=== PATIENT | male | born 1980 | race Hispanic/Latino ===

== ENCOUNTER 2020-04-02 13:50 | Outpatient (CLI) | payer BC ==
--- NOTE | 2020-04-02 15:11 | Cat Scan Report ---
CT abdomen pelvis wo con INDICATION: Incisional hernia. TECHNIQUE: All CT scans at this location are performed using the following dose modulation technique: Automated exposure control. CONTRAST: None. COMPARISON: None available. CT ABDOMEN: The parenchymal organs are unremarkable in appearance other than a 2 mm nonobstructing le ft renal stone. Negative for abdominal mass, fluid or inflammation. The bowel is not dilated or thick ened. A fat-containing ventral hernia lies to the left of midline just above the umbilicus. No associated i nflammation is present. Underlying eventration is seen at the anterior abdominal wall. CT PELVIS: Negative for pelvic mass, fluid or inflammation. IMPRESSION: 1. Fat-containing ventral hernia just to the left of midline above the umbilicus. 2. 2 mm nonobstructing left renal stone. Signer Name: Giovany Lawson MD Signed: 04/02/2020 3:06 PM Workstation Name: [id number]
== END 2020-04-02 13:51 | disposition home or self-care (01) ==
LOC: CT 13:50
PROVIDERS: ATTEND Surgery
DX: N20.0 Calculus of kidney (principal); K43.9 Ventral hernia without obstruction or gangrene; K43.2 Incisional hernia without obstruction or gangrene
CPT/HCPCS: 74176

== ENCOUNTER 2020-04-29 10:19 | Day surgery (SDC) | payer BC ==
[~2020-04-29 10:19] MED LIST: CELECOXIB 200 MG CAP PO NR; GABAPENTIN 300 MG CAP PO NR; LACTATED RINGERS 1,000 ML IV SCH; MAGNESIUM OXIDE 400 MG TAB PO SCH; MIDAZOLAM 2 MG/2 ML INJ IV NR; SCOPOLAMINE TRANSDERMAL PATCH 72 HR TD NR; fentaNYL 100 MCG/2 ML INJ IV PRN
[2020-04-29] MEDS ORDERED: LIDOCAINE (1%) 10 MG/1 ML VIAL 20 ML MDV ONE (10:47)
[2020-04-29] MEDS ORDERED: BUPIVACAINE/PF (0.5%) 5 MG/1 ML 30 ML VIAL INFILTRATI ONE (10:47)
[2020-04-29] MEDS ORDERED: ceFAZolin/Water 2 GM/20 ML 2 GM/20 ML SYRINGE IV SCH (11:00)
[2020-04-29] MEDS ORDERED: dexAMETHasone 4 MG/ML VIAL ONE (11:10)
[2020-04-29] MEDS ORDERED: BUPIVACAINE-EPINEPHRINE/PF 0.25%-1:200,000 (10 ML) VIAL INFILTRATI ONE (11:11)
--- NOTE | 2020-04-29 11:18 | Anesthesia Day of Surgery ---
Anesthesia Day of Surgery - Day of Surgery Patient Examined: Yes Patient H&P Reviewed: Yes Patient is NPO: Yes
--- NOTE | 2020-04-29 11:18 | Anesthesia Consultation ---
Anesthesia Consult and Med Hx Date of service: 04/29/20 - Airway Anesthetic Teeth Evaluation: Good ROM Head & Neck: Adequate Mental/Hyoid Distance: Adequate Mallampati Class: Class III Intubation Access Assessment: Possibly Difficult - Pulmonary Exam CTA: Yes - Cardiac Exam Cardiac Exam: RRR - Pre-Operative Health Status ASA Pre-Surgery Classification: ASA2 Proposed Anesthetic Plan: General Nerve Block: TAP - Pulmonary Hx Smoking: No (former smoker 1PPD, quit 1.5yrs ago) Hx Respiratory Symptoms: No Hx Sleep Apnea: No (DANNA PRE SCREEN LOW RISK) - Cardiovascular System Hx Hypertension: No Hx Heart Attack/AMI: No Hx Percutaneous Transluminal Coronary Angioplasty (PTCA): No Hx Cardia Arrhythmia: No - Central Nervous System CVA: No Hx Psychiatric Problems: Yes - Gastrointestinal Hx Gastroesophageal Reflux Disease: No - Endocrine Hx Renal Disease: No Hx Liver Disease: No Hx Insulin Dependent Diabetes: No Hx Non-Insulin Dependent Diabetes: No Hx Thyroid Disease: No - Other Systems Hx Obesity: No - Additional Comments Anesthesia Medical History Comments: No hx anesthetic complications. Outpatient COVID test 04/25/20 negative. Results on chart.
[2020-04-29] MEDS ORDERED: fentaNYL 100 MCG/2 ML INJ ONE (11:58)
[2020-04-29] MEDS ORDERED: propofoL 200 MG/20 ML VIAL IV ONE (11:58)
[2020-04-29] MEDS ORDERED: ROCURONIUM 50 MG/5 ML INJ IV ONE (11:58)
[2020-04-29] MEDS ORDERED: PHENYLEPHRINE/NS 1,000 MCG/10 ML SYRINGE (OR USE) IV ONE (12:51)
[2020-04-29] MEDS ORDERED: HYDROmorphone 1 MG/1 ML INJ ONE (13:12)
[2020-04-29] MEDS ORDERED: WATER FOR IRRIG STERILE 1,500 ML BOTTLE IR ONE (13:36)
[2020-04-29] MEDS ORDERED: ONDANSETRON 4 MG/2 ML INJ ONE (14:00)
[2020-04-29] MEDS ORDERED: SODIUM CHLORIDE 0.9% 1000 ML 1,000 ML ONE (14:38)
--- NOTE | 2020-04-29 15:41 | Short Stay Summary ---
Short Stay Documentation Date of service: 04/29/20 - History Principal diagnosis: incisional hernia H&P: obtained from office - Allergies and Medications Current Medications: Allergies No Known Allergies Allergy (Verified 04/24/20 10:41) Home Medications Medication Instructions Recorded Confirmed Last Taken Type Atorvastatin 10 mg PO DAILY 04/23/20 04/29/20 04/28/20 History Testosterone Cypionate 200 mg IM 1XW 04/23/20 04/23/20 Unknown History Active Medications Celecoxib (Celebrex) 200 mg PO PREOP NR Stop: 04/29/20 23:59 Last Admin: 04/29/20 11:10 Dose: 200 mg Documented by: Fentanyl (Sublimaze) 100 mcg IV ONCE PRN PRN Reason: sedation for nerve block Last Admin: 04/29/20 11:26 Dose: 100 mcg Documented by: Gabapentin (Gabapentin) 600 mg PO PREOP NR Stop: 04/29/20 23:59 Last Admin: 04/29/20 11:10 Dose: 600 mg Documented by: Hydromorphone HCl (Dilaudid) 0.5 mg IV Q10MIN PRN PRN Reason: Pain , Severe (7-10) Lactated Ringer's (Lactated Ringers) 1,000 mls @ 100 mls/hr IV DIRECT SANTOS Stop: 04/29/20 23:59 Last Admin: 04/29/20 11:15 Dose: 100 mls/hr Documented by: Cefazolin Sodium (Ancef/Sterile Water 2 Gm/20 Ml) 2 gm in 20 mls @ 40 mls/hr IV PREOP SANTOS; Protocol Stop: 04/29/20 23:00 Magnesium Oxide (Mag-Ox) 400 mg PO PREOP SANTOS Last Admin: 04/29/20 11:10 Dose: 400 mg Documented by: Midazolam HCl (Versed) 2 mg IV PREOP NR Stop: 04/29/20 23:59 Last Admin: 04/29/20 11:25 Dose: 2 mg Documented by: Scopolamine (Transderm-Scop) 1 each TD PREOP NR Stop: 04/29/20 23:59 Last Admin: 04/29/20 11:05 Dose: 1 each Documented by: - Brief post op/procedure progress note Date of procedure: 04/29/20 Pre-op diagnosis: Incisional hernia Post-op diagnosis: same Procedure: Robotic assisted laparoscopic incisional hernia repair with mesh, extensive lysis of adhesions Anesthesia: GETA, regional (LISSETTE block) Findings: 2 incisional hernias containing omentum - total measuring 8cm cranial caudal by 3 cm width Repaired with bard ventralight coated mesh 15.2x10.5cm Uo: 100cc IVF: 1L Surgeon: ELISE EVANS Estimated blood loss: minimal Pathology: none Condition: stable - Hospital course Hospital course: Pt observed in PACU and discharged to home in stable condition when criteria met - Disposition Condition at discharge: Good Disposition: DC-01 TO HOME OR SELFCARE Short Stay Discharge Plan Activity: other (no heavy lifting for 6 weeks) Diet: low fat, other (soft) Wound: open to air, per your surgeon's advice, other (Apply ice pack to incisions as needed for pain, bruising) Additional Instructions: SEE PRINTED DISCHARGE INSTRUCTIONS Follow up with: PRIMARY CARE,MD [Primary Care Provider] - 7 Days ELISE EVANS DO [Staff Physician] - 14 Days Prescriptions: Gabapentin 300 mg PO TID #15 capsule Ibuprofen [Motrin 800 MG tab] 800 mg PO Q8HR #15 tablet oxyCODONE /ACETAMINOPHEN [Percocet 5/325] 1 tab PO Q6HR PRN #20 tablet PRN Reason: Pain , Severe (7-10)
[2020-04-29] MEDS: HYDROmorphone 1 MG/1 ML INJ IV PRN ×4 (15:58→16:36)
[2020-04-29] MEDS ORDERED: ONDANSETRON 4 MG/2 ML INJ IV ONE (16:00)
[2020-04-29] MEDS ORDERED: LORazepam 2 MG/ML VIAL IV ONE (16:14)
[2020-04-29] MEDS ORDERED: oxyCODONE /ACETAMINOPHEN 5-325MG TAB PO ONE (17:00)
[2020-04-29 17:01] VITALS: BP 131/71
--- NOTE | 2020-04-29 17:06 | Post Anesthesia Evaluation ---
- Post Anesthesia Evaluation Patient Participated: Yes Airway Patent: Yes Stable Respiratory Function: Yes Nausea/Vomiting: No Temp > 96.8F: Yes Pain Manageable: Yes Adequeate Hydration: Yes Anesthesia Complications: No
--- NOTE | 2020-04-30 13:04 | Operative Report ---
PREOPERATIVE DIAGNOSIS: Incisional hernia. POSTOPERATIVE DIAGNOSIS: Incisional hernia. PROCEDURE: Robotic-assisted laparoscopic incisional hernia repair with mesh, extensive lysis of adhesions. ANESTHESIA: General endotracheal anesthesia, TAP block. FINDINGS: Two incisional hernias containing omentum with a total combined defect measuring 8 cm craniocaudal x 3 cm in width, which was repaired with a Bard Ventralight coated mesh 15.2 x 10.5 cm. URINE OUTPUT: 100 mL. IV FLUIDS: 1 liter. SURGEON: Cira Nazario DO EDITORIAL CARTOONIST: RANDAL Arango ESTIMATED BLOOD LOSS: Minimal. PATHOLOGY: None. CONDITION AT DISPOSITION: Stable to PACU. HISTORY OF PRESENT ILLNESS AND INDICATION: The patient is a 39-year-old male with a history of an exploratory laparotomy and colon resection for a traumatic injury many years ago. The patient developed an incisional hernia. CT scan was performed as part of the workup, which showed a small fat containing ventral hernia just to the left of the midline above the umbilicus. The patient elected to have this repaired. All risks, benefits, and alternatives to surgery were discussed with the patient along with pre, dinorah, postoperative expectations. The laparoscopic, open, robotic approaches were discussed. After all questions were answered, consent was obtained for robotic-assisted incisional hernia repair with mesh, possible open. PROCEDURE IN DETAIL: The patient was identified in the preoperative area, taken back to the operating room and placed on the operating table in supine position. After anesthesia was induced, a Best catheter was sterilely placed by the circulating nurse. Both arms were tucked and all bony prominences were padded appropriately. The abdomen was then prepped and draped in the usual sterile fashion and a timeout was performed. A billy incision was made in the left upper quadrant through which a Veress needle was inserted. The Veress needle position was confirmed using saline drop test and the abdomen insufflated to 15 mmHg. Veress needle was removed and the incision slightly elongated. Through this incision, a 5 mm Optiview trocar was placed under direct visualization. The abdomen was inspected and there was no underlying injury to any of the abdominal structures. There were extensive adhesions from the small bowel and omentum to the anterior abdominal wall. There were also adhesions from the small bowel to the liver and liver to the anterior abdominal wall. The supraumbilical incisional hernia was visualized and was containing omentum and fat. At this point, an additional 5 mm right upper quadrant trocar was placed under direct visualization. Lysis of adhesions was then performed laparoscopically with endoshears in order to make room for additional trocars. Once we were able, a 12 mm right mid lateral abdominal balloon trocar was placed under direct visualization and an 8 mm robotic right lower quadrant trocar under direct visualization. The 5 mm right upper quadrant trocar was replaced with an 8 mm robotic trocar under direct visualization. The robot was then docked and a monopolar scissor placed in arm #1 and a fenestrated bipolar in arm #2. The surgeon was then transferred to the console. I then continued lysis of adhesions from the small bowel and omentum to the anterior abdominal wall using a combination of blunt dissection, scissors. This was done very meticulously with great care to avoid injury to the underlying structures. Once all of these adhesions were taken down, the small bowel and omentum was examined. Hemostasis was carefully ensured. There was a tiny, less than 0.5 cm serosal tear involving the small bowel without full-thickness injury. This was repaired with a single Lembert stitch using a 3-0 silk. During the lysis of adhesions, an additional incisional hernia was found in the epigastric region approximately 4 cm superior to the supraumbilical hernia. The aggregate measurement was 8 cm craniocaudal x 3 cm in width. It was therefore decided to repair this with a 15 x 10.5 cm composite mesh. First, both hernia defects were each closed with a running 0 V-Loc suture respectively. A 2-0 Vicryl stitch was placed at the center of the mesh on the peritoneal side in order to secure the mesh transfascially. The mesh along with suture material was then passed into the abdomen by the gift shop assistant. A billy incision was made in the center of the hernia defects and the tails of the sutures grasped with the [employer] device under direct visualization. The suture was then pulled taut so the mesh would lie flat against the abdominal wall. The mesh was positioned appropriately and sutured circumferentially to the abdominal wall using a running 2-0 V-Loc stitch x 2. Once the mesh was circumferentially sutured in place, the 2-0 Vicryl stitch was tied down. The mesh was seen to cover all of the defect with overlap adequately. There was no bleeding. I once again examined the small bowel and omentum, which was involved in lysis of adhesions and there were no injuries seen. Hemostasis was ensured. At this point, the robot was undocked and the surgeon scrubbed back in. The remainder of the case was performed laparoscopically. The suture material, sharps, and any other foreign objects which were inserted into the abdomen were removed under direct visualization. The fascia of the right upper quadrant and right lower quadrant 8 mm ports as well as the 12 mm port were closed using interrupted 0 Vicryl stitches using the [employer] device. The 8 mm ports fascia was closed due to some stretching during the surgery. The abdomen was then slowly desufflated and the 5 mm left upper quadrant port removed. The skin incisions were then closed with 4-0 Monocryl subcuticular stitches and skin glue. The Best catheter was removed. An abdominal binder was applied to the patient. At the end of the case, all sponge, instrument, sharp counts were correct x 2. The patient was awoken from anesthesia, extubated and taken to PACU in stable condition. JOB# [id number] BOBBY/MARIA ESTHER [facility]CASTER
== END 2020-04-29 17:37 | disposition home or self-care (01) ==
LOC: OR 10:19
PROVIDERS: ATTEND Surgery
DX: K43.2 Incisional hernia without obstruction or gangrene (principal); K66.0 Peritoneal adhesions (postprocedural) (postinfection); E78.00 Pure hypercholesterolemia, unspecified; K21.9 Gastro-esophageal reflux disease without esophagitis; F32.9 Major depressive disorder, single episode, unspecified; Z79.899 Other long term (current) drug therapy; Z87.891 Personal history of nicotine dependence; Z87.440 Personal history of urinary (tract) infections; Z98.890 Other specified postprocedural states
CPT/HCPCS: 49654; C1781; J0690; J1100; J1170; J2060; J2250; J2370; J2405; J2704; J3010; J7030; J7120; S2900; 64450